=== PATIENT | male | born 1940 | race Caucasian/White ===

== ENCOUNTER 2017-11-26 14:21 | Outpatient (REF) | payer MEDICARE, OTHER, SELFPAY ==
[2017-11-26 19:32] LABS: HGB 14.4 g/dL (13.5-17.5); Mean Corp. HGB Concentration 34.3 g/dL (32.0-36.0); Mean Corpuscular Hemoglobin 32.4 pg (27.0-33.0); Mean Corpuscular Volume 94.4 fL (80-95); Mean Platelet Volume 11.4 fL (8.0-11.0); RBC 4.45 m/cumm (4.50-6.00); RBC Distribution Width 12.9 % (11.8-14.1); White Blood Cell Count 6.21 k/cumm (4.4-10.8)
[2017-11-26 19:33] LABS: Iron 14 ug/dL (50-175)
[2017-11-26 21:49] LABS: Platelet Count 80 x1000/uL (130-400)
== END 2017-11-26 14:41 ==
LOC: NCHCN 14:21
PROVIDERS: PCP Physician Assistant; Visit Provider Nurse Practitioner Family
DX: D50.0 Iron deficiency anemia secondary to blood loss (chronic) (principal)
CPT/HCPCS: 85027; 83540

== ENCOUNTER 2018-12-10 13:30 | Outpatient (REF) | payer OTHER, SELFPAY ==
[2018-12-10 19:22] LABS: Iron 84 ug/dL (50-175)
[2018-12-10 19:35] LABS: HCT 37.8 % (40.0-50.0); HGB 12.6 g/dL (13.5-17.5); Mean Corp. HGB Concentration 33.3 g/dL (32.0-36.0); Mean Corpuscular Hemoglobin 32.1 pg (27.0-33.0); Mean Corpuscular Volume 96.2 fL (80-95); Mean Platelet Volume 10.9 fL (8.0-11.0); Platelet Count 197 x1000/uL (130-400); RBC 3.93 m/cumm (4.50-6.00); White Blood Cell Count 5.38 k/cumm (4.4-10.8)
[2018-12-10 19:37] LABS: Calculated LDL 181 mg/dL; Cholesterol 258 mg/dL (50-200); HDL Cholesterol 69 mg/dL (40-60); TSH (W/Ref FT4) 3.03 uIU/mL (0.36-3.74); Triglyceride 43 mg/dL (30-150)
== END 2018-12-10 13:50 ==
LOC: NCHCN 13:30
PROVIDERS: PCP Physician Assistant; Visit Provider Nurse Practitioner Family
DX: E03.9 Hypothyroidism, unspecified (principal); E78.5 Hyperlipidemia, unspecified; D50.0 Iron deficiency anemia secondary to blood loss (chronic)
CPT/HCPCS: 80061; 85027; 83540; 84443

== ENCOUNTER 2019-11-11 14:55 | Outpatient (REF) | payer OTHER, SELFPAY ==
[2019-11-11 19:44] LABS: Abs Immature Grans 0.02 10^3/uL (0.0-0.06); Absolute Basophil Count 0.02 10^3/uL (0.0-0.2); Absolute Eosinophil Count 0.17 10^3/uL (0.0-0.7); Absolute Lymphocyte Count 1.88 10^3/uL (1.2-3.4); Absolute Monocyte Count 0.48 10^3/uL (0.1-0.8); Absolute Neutrophil Count 2.93 10^3/uL (1.2-6.7); Basophils % 0.4; Eosinophils % 3.1; HCT 37.7 % (40.0-50.0); HGB 12.4 g/dL (13.5-17.5); Immature Grans % 0.4; Lymphocytes % 34.2; MCH 32.4 pg (27.0-33.0); MCHC 32.9 % (32.0-36.0); MCV 98.4 fL (80-95); MPV 11.3 fL (8.0-11.0); Monocytes % 8.7; Neutrophils % 53.2; Nucleated RBC 0 %; Platelet Count 175 10^3/uL (130-400); RBC 3.83 10^6/uL (4.36-5.78); RDW 12.8 % (11.8-14.1); RDW-SD 46.4 fL
[2019-11-11 19:59] LABS: Iron 89 ug/dL (65-175); Total Iron Binding Capacity 299 ug/dL (250-450); Transferrin Sat 30 % (20-55)
[2019-11-11 20:07] LABS: ALT 29 U/L (16-63); AST 18 U/L (15-37); Alkaline Phosphatase 60 U/L (46-116); Anion Gap 4.4 mmol/L (3-11); BUN 22 mg/dL (7-18); Bilirubin, Total 0.5 mg/dL (0.2-1.0); CO2 29.6 mmol/L (21.0-32.0); CREATININE 1.17 mg/dL (0.70-1.30); Calcium 8.6 mg/dL (8.5-10.1); Calculated LDL 177 mg/dL (<100); Chloride 107 mmol/L (98-107); Cholesterol 255 mg/dL (<200); Ferritin 208 ng/mL (26-388); Glucose 93 mg/dL (74-106); HDL Cholesterol 67 mg/dL (40-60); Potassium 4.8 mmol/L (3.5-5.1); Sodium 141 mmol/L (136-145); TSH (W/Ref FT4) 3.84 uIU/mL (0.36-3.74); Total Protein 6.7 g/dL (6.4-8.2); Triglyceride 58 mg/dL (<150)
[2019-11-11 20:25] LABS: FREE T4 0.88 ng/dL (0.76-1.46)
== END 2019-11-11 15:15 ==
LOC: NCHCN 14:55
PROVIDERS: PCP Physician Assistant; Visit Provider Physician Assistant
DX: E03.9 Hypothyroidism, unspecified (principal); E78.5 Hyperlipidemia, unspecified; D50.0 Iron deficiency anemia secondary to blood loss (chronic); I35.0 Nonrheumatic aortic (valve) stenosis
CPT/HCPCS: 80053; 80061; 82728; 83540; 83550; 84439; 84443; 85025

== ENCOUNTER 2020-01-13 16:16 | Outpatient (REF) | payer OTHER, SELFPAY ==
[2020-01-13 19:13] LABS: TSH (W/Ref FT4) 2.49 uIU/mL (0.36-3.74)
== END 2020-01-13 16:36 ==
LOC: NCHCN 16:16
PROVIDERS: PCP Physician Assistant; Visit Provider Physician Assistant
DX: E03.9 Hypothyroidism, unspecified (principal)
CPT/HCPCS: 84443

== ENCOUNTER 2020-11-16 13:54 | Outpatient (REF) | payer OTHER, SELFPAY ==
[2020-11-16 21:01] LABS: ALT 28 U/L (16-63); AST 22 U/L (15-37); Albumin 3.9 g/dL (3.4-5.0); Alkaline Phosphatase 76 U/L (46-116); Anion Gap 10.7 mmol/L (3-11); BUN 24 mg/dL (7-18); Bilirubin, Total 0.4 mg/dL (0.2-1.0); CO2 24.3 mmol/L (21.0-32.0); CREATININE 1.2 mg/dL (0.70-1.30); Calcium 8.8 mg/dL (8.5-10.1); Calculated LDL 214 mg/dL (<100); Chloride 105 mmol/L (98-107); Cholesterol 285 mg/dL (<200); Estimated GFR 58.26 (mL/min/1.73m2); Glucose 104 mg/dL (74-106); HDL Cholesterol 58 mg/dL (40-60); Potassium 4.5 mmol/L (3.5-5.1); Sodium 140 mmol/L (136-145); TSH (W/Ref FT4) 3.39 uIU/mL (0.36-3.74); Total Protein 6.8 g/dL (6.4-8.2); Triglyceride 68 mg/dL (<150)
== END 2020-11-16 13:55 | disposition home or self-care (01) ==
LOC: NCHCN 13:54
PROVIDERS: PCP Physician Assistant; Referring Provider Physician Assistant; Visit Provider Physician Assistant
DX: E78.5 Hyperlipidemia, unspecified (principal); E03.9 Hypothyroidism, unspecified
CPT/HCPCS: 80053; 80061; 84443

== ENCOUNTER 2021-11-22 19:18 | Outpatient (REF) | payer OTHER, SELFPAY ==
[2021-11-22 21:34] LABS: ALT 23 U/L (16-63); AST 23 U/L (15-37); Albumin 3.6 g/dL (3.4-5.0); Alkaline Phosphatase 54 U/L (46-116); Anion Gap 4.1 mmol/L (3-11); BUN 30 mg/dL (7-18); Bilirubin, Total 0.5 mg/dL (0.2-1.0); CO2 28.9 mmol/L (21.0-32.0); CREATININE 1.3 mg/dL (0.70-1.30); Calcium 8.7 mg/dL (8.5-10.1); Calculated LDL 172 mg/dL (<100); Chloride 106 mmol/L (98-107); Cholesterol 246 mg/dL (<200); Estimated GFR 55.19 (mL/min/1.73m2); Glucose 110 mg/dL (74-106); HDL Cholesterol 65 mg/dL (40-60); Potassium 5.4 mmol/L (3.5-5.1); Sodium 139 mmol/L (136-145); TSH (W/Ref FT4) 2.16 uIU/mL (0.36-3.74); Total Protein 6.8 g/dL (6.4-8.2); Triglyceride 49 mg/dL (<150)
== END 2021-11-22 19:19 | disposition home or self-care (01) ==
LOC: NCHCN 19:18
PROVIDERS: PCP Physician Assistant; Visit Provider Physician Assistant
DX: I10 Essential (primary) hypertension (principal); E78.5 Hyperlipidemia, unspecified
CPT/HCPCS: 80053; 80061; 84443

== ENCOUNTER 2023-01-03 11:38 | Outpatient (REF) | payer OTHER, SELFPAY ==
[2023-01-03 21:11] LABS: ALT 18 U/L (16-63); AST 20 U/L (15-37); Albumin 3.8 g/dL (3.4-5.0); Alkaline Phosphatase 69 U/L (46-116); Anion Gap 9.3 mmol/L (3-11); BUN 26 mg/dL (7-18); Bilirubin, Total 0.4 mg/dL (0.2-1.0); CO2 25.7 mmol/L (21.0-32.0); CREATININE 1.4 mg/dL (0.70-1.30); Calcium 9.4 mg/dL (8.5-10.1); Calculated LDL 172 mg/dL (<100); Chloride 106 mmol/L (98-107); Cholesterol 250 mg/dL (<200); Estimated GFR 50.18 (mL/min/1.73m2); Glucose 114 mg/dL (74-106); HDL Cholesterol 65 mg/dL (40-60); Potassium 4.6 mmol/L (3.5-5.1); Sodium 141 mmol/L (136-145); Total Protein 6.9 g/dL (6.4-8.2); Triglyceride 69 mg/dL (<150)
== END 2023-01-03 11:39 | disposition home or self-care (01) ==
LOC: NCHCN 11:38
PROVIDERS: PCP Physician Assistant; Visit Provider Physician Assistant
DX: I10 Essential (primary) hypertension (principal); E03.9 Hypothyroidism, unspecified; I48.0 Paroxysmal atrial fibrillation; Z00.00 Encounter for general adult medical examination without abnormal findings
CPT/HCPCS: 80053; 80061; 84439; 84443

== ENCOUNTER 2023-08-14 12:14 | Outpatient (REF) | payer MEDICARE, SELFPAY ==
[2023-08-14 19:13] LABS: Abs Immature Grans 0.01 10^3/uL (0.0-0.06); Absolute Basophil Count 0.05 10^3/uL (0.0-0.2); Absolute Eosinophil Count 0.28 10^3/uL (0.0-0.7); Absolute Lymphocyte Count 2.09 10^3/uL (1.2-3.4); Absolute Monocyte Count 0.53 10^3/uL (0.1-0.8); Absolute Neutrophil Count 2.77 10^3/uL (1.2-6.7); Basophils % 0.9 %; Eosinophils % 4.9 %; HCT 37.1 % (40.0-50.0); HGB 12.4 g/dL (13.5-17.5); Immature Grans % 0.2 %; Lymphocytes % 36.5 %; MCH 31.4 pg (27.0-33.0); MCHC 33.4 % (32.0-36.0); MCV 94 fL (80-95); MPV 10.8 fL (8.0-11.0); Monocytes % 9.2 %; Neutrophils % 48.3 %; Platelet Count 227 10^3/uL (130-400); RBC 3.95 10^6/uL (4.36-5.78); RDW 14.2 % (11.8-14.1); RDW-SD 48.8 fL; WBC 5.73 10^3/uL (4.4-10.8)
[2023-08-14 19:33] LABS: ALT 21 U/L (16-63); AST 19 U/L (15-37); Alkaline Phosphatase 83 U/L (46-116); Anion Gap 7.5 mmol/L (3-11); BUN 30 mg/dL (7-18); Bilirubin, Total 0.5 mg/dL (0.2-1.0); CO2 27.5 mmol/L (21.0-32.0); CREATININE 1.6 mg/dL (0.70-1.30); Calcium 9.1 mg/dL (8.5-10.1); Chloride 104 mmol/L (98-107); Estimated GFR 42.49 (mL/min/1.73m2); Glucose 110 mg/dL (74-106); Potassium 4.4 mmol/L (3.5-5.1); Sodium 139 mmol/L (136-145); Total Protein 7.3 g/dL (6.4-8.2)
[2023-08-14 19:49] LABS: FREE T4 0.92 ng/dL (0.76-1.46)
[2023-08-16 18:56] LABS: PSA, Ultrasensitive 21.2 ng/mL (<= 7.2)
[2023-08-23 12:48] LABS: Testosterone, Free 0.13 ng/dL (2.88-10.5); Testosterone, Total 8.8 ng/dL (240-950)
== END 2023-08-14 12:15 | disposition home or self-care (01) ==
LOC: NCHCN 12:14
PROVIDERS: PCP Physician Assistant; Visit Provider Physician Assistant
DX: E03.9 Hypothyroidism, unspecified (principal); I10 Essential (primary) hypertension; C79.82 Secondary malignant neoplasm of genital organs; E78.5 Hyperlipidemia, unspecified
CPT/HCPCS: 80053; 84153; 84402; 84403; 84439; 84443; 85025

== ENCOUNTER 2023-09-14 11:12 | Outpatient (REF) | payer MEDICARE, SELFPAY ==
[2023-09-14 19:01] LABS: TSH (W/Ref FT4) 5.04 uIU/mL (0.36-3.74)
[2023-09-14 19:20] LABS: FREE T4 0.96 ng/dL (0.76-1.46)
== END 2023-09-14 11:13 | disposition home or self-care (01) ==
LOC: NCHCN 11:12
PROVIDERS: PCP Physician Assistant; Visit Provider Physician Assistant
DX: E03.9 Hypothyroidism, unspecified (principal); R97.20 Elevated prostate specific antigen [PSA]; C79.82 Secondary malignant neoplasm of genital organs
CPT/HCPCS: 84153; 84439; 84443

== ENCOUNTER 2023-10-26 15:01 | Outpatient (REF) | payer MEDICARE, SELFPAY ==
[2023-10-26 19:10] LABS: Abs Immature Grans 0.01 10^3/uL (0.0-0.06); Absolute Basophil Count 0.04 10^3/uL (0.0-0.2); Absolute Eosinophil Count 0.26 10^3/uL (0.0-0.7); Absolute Lymphocyte Count 2.29 10^3/uL (1.2-3.4); Absolute Monocyte Count 0.48 10^3/uL (0.1-0.8); Absolute Neutrophil Count 2.41 10^3/uL (1.2-6.7); Basophils % 0.7 %; Eosinophils % 4.7 %; HCT 36.4 % (40.0-50.0); Immature Grans % 0.2 %; Lymphocytes % 41.7 %; MCH 33.3 pg (27.0-33.0); MCV 101 fL (80-95); MPV 10.7 fL (8.0-11.0); Monocytes % 8.7 %; Platelet Count 203 10^3/uL (130-400); RDW-SD 48.4 fL; WBC 5.49 10^3/uL (4.4-10.8)
[2023-10-26 19:35] LABS: ALT 18 U/L (16-63); AST 20 U/L (15-37); Albumin 3.6 g/dL (3.4-5.0); Alkaline Phosphatase 83 U/L (46-116); BUN 24 mg/dL (7-18); Bilirubin, Total 0.62 mg/dL (0.2-1.0); CREATININE 1.5 mg/dL (0.70-1.30); Calcium 9.2 mg/dL (8.5-10.1); Chloride 105 mmol/L (98-107); Estimated GFR 45.91 (mL/min/1.73m2); Glucose 113 mg/dL (74-106); Potassium 4.5 mmol/L (3.5-5.1); Sodium 140 mmol/L (136-145); TSH (W/Ref FT4) 4.18 uIU/mL (0.36-3.74); Total Protein 6.8 g/dL (6.4-8.2)
[2023-10-26 20:17] LABS: FREE T4 1.01 ng/dL (0.76-1.46)
[2023-10-29 18:16] LABS: PSA, Ultrasensitive 6.5 ng/mL (<= 7.2)
[2023-11-01 09:52] LABS: Testosterone, Total 12 ng/dL (240-950)
== END 2023-10-26 15:02 | disposition home or self-care (01) ==
LOC: NCHCN 15:01
PROVIDERS: PCP Physician Assistant; Visit Provider Physician Assistant
DX: E03.9 Hypothyroidism, unspecified (principal); C79.82 Secondary malignant neoplasm of genital organs
CPT/HCPCS: 80053; 84153; 84403; 84439; 84443; 85025

== ENCOUNTER 2023-12-13 15:31 | Outpatient (REF) | payer MEDICARE, SELFPAY ==
[2023-12-13 20:15] LABS: TSH (W/Ref FT4) 2.73 uIU/mL (0.36-3.74)
[2023-12-19 10:43] LABS: PSA, Ultrasensitive 4.7 ng/mL (<= 7.2)
== END 2023-12-13 15:32 | disposition home or self-care (01) ==
LOC: NCHCN 15:31
PROVIDERS: PCP Physician Assistant; Visit Provider Physician Assistant
DX: E03.9 Hypothyroidism, unspecified (principal); C79.82 Secondary malignant neoplasm of genital organs
CPT/HCPCS: 84153; 84443

== ENCOUNTER 2024-07-30 11:05 | Outpatient (REF) | payer MEDICARE, SELFPAY ==
[2024-07-30 20:24] LABS: Abs Immature Grans 0.01 10^3/uL (0.0-0.06); Absolute Basophil Count 0.04 10^3/uL (0.0-0.2); Absolute Eosinophil Count 0.14 10^3/uL (0.0-0.7); Absolute Lymphocyte Count 1.94 10^3/uL (1.2-3.4); Absolute Monocyte Count 0.46 10^3/uL (0.1-0.8); Absolute Neutrophil Count 2.54 10^3/uL (1.2-6.7); Basophils % 0.8 %; Eosinophils % 2.7 %; HCT 35.7 % (40.0-50.0); HGB 11.9 g/dL (13.5-17.5); Immature Grans % 0.2 %; Lymphocytes % 37.8 %; MCH 33.2 pg (27.0-33.0); MCHC 33.3 % (32.0-36.0); MCV 100 fL (80-95); MPV 10.6 fL (8.0-11.0); Neutrophils % 49.5 %; Platelet Count 198 10^3/uL (130-400); RBC 3.58 10^6/uL (4.36-5.78); RDW 12.2 % (11.8-14.1); RDW-SD 44.6 fL; WBC 5.13 10^3/uL (4.4-10.8)
[2024-07-30 20:42] LABS: ALT 18 U/L (16-63); AST 20 U/L (15-37); Albumin 3.8 g/dL (3.4-5.0); Alkaline Phosphatase 81 U/L (46-116); Anion Gap 4.3 mmol/L (3-11); BUN 24 mg/dL (7-18); Bilirubin, Total 0.5 mg/dL (0.2-1.0); CO2 28.7 mmol/L (21.0-32.0); CREATININE 1.3 mg/dL (0.70-1.30); Calcium 9.3 mg/dL (8.5-10.1); Chloride 106 mmol/L (98-107); Estimated GFR 54.17 (mL/min/1.73m2); Glucose 110 mg/dL (74-106); Potassium 5.2 mmol/L (3.5-5.1); Sodium 139 mmol/L (136-145)
== END 2024-07-30 11:06 | disposition home or self-care (01) ==
LOC: NCHCN 11:05
PROVIDERS: PCP Physician Assistant; Visit Provider Physician Assistant
DX: I10 Essential (primary) hypertension (principal); E03.9 Hypothyroidism, unspecified
CPT/HCPCS: 80053; 84443; 85025

== ENCOUNTER 2024-08-25 20:21 | Outpatient (REF) | payer MEDICARE, SELFPAY ==
[2024-08-28 19:49] LABS: PSA, Ultrasensitive 2.1 ng/mL (<= 7.2)
== END 2024-08-25 20:22 | disposition home or self-care (01) ==
LOC: NCHCN 20:21
PROVIDERS: PCP Physician Assistant; Visit Provider Physician Assistant
DX: C79.82 Secondary malignant neoplasm of genital organs (principal)
CPT/HCPCS: 84153

== ENCOUNTER 2024-12-02 16:07 | Outpatient (REF) | payer MEDICARE, SELFPAY ==
[2024-12-02 20:00] LABS: Abs Immature Grans 0.01 10^3/uL (0.0-0.06); HCT 35.2 % (40.0-50.0); HGB 11.7 g/dL (13.5-17.5); Immature Grans % 0.2 %; MCH 33.9 pg (27.0-33.0); MCHC 33.2 % (32.0-36.0); MCV 102 fL (80-95); MPV 10.4 fL (8.0-11.0); Platelet Count 214 10^3/uL (130-400); RBC 3.45 10^6/uL (4.36-5.78); RDW 12.6 % (11.8-14.1); RDW-SD 47.1 fL; WBC 5.52 10^3/uL (4.4-10.8)
[2024-12-02 20:11] LABS: ALT 17 U/L (16-63); AST 19 U/L (15-37); Albumin 3.8 g/dL (3.4-5.0); Alkaline Phosphatase 88 U/L (46-116); Anion Gap 9.2 mmol/L (3-11); BUN 23 mg/dL (7-18); Bilirubin, Total 0.5 mg/dL (0.2-1.0); CO2 26.8 mmol/L (21.0-32.0); Calcium 9.4 mg/dL (8.5-10.1); Chloride 105 mmol/L (98-107); Estimated GFR 59.63 (mL/min/1.73m2); Glucose 107 mg/dL (74-106); Potassium 4.6 mmol/L (3.5-5.1); Sodium 141 mmol/L (136-145); TSH (W/Ref FT4) 2.05 uIU/mL (0.36-3.74); Total Protein 7.1 g/dL (6.4-8.2)
== END 2024-12-02 16:08 | disposition home or self-care (01) ==
LOC: NCHCN ADD 16:07
PROVIDERS: PCP Physician Assistant; Visit Provider Physician Assistant
DX: E03.9 Hypothyroidism, unspecified (principal); C79.82 Secondary malignant neoplasm of genital organs
CPT/HCPCS: 80053; 84153; 84403; 84443; 85025